=== PATIENT | female | born 1995 | race Asian ===

== ENCOUNTER 2018-02-08 16:13 | Emergency (ER) | payer OTHER ==
[~2018-02-08] VITALS: Ht 162.6 cm; Wt 57.2 kg
[2018-02-08 16:26] VITALS: Ht 162.6 cm; Wt 57.2 kg
[2018-02-08 17:37] LABS: BASOPHIL % 0.4 % (0-2); PLATELET COUNT 267 x10^3mcL (130-400); RED CELL DISTRIBUTION WIDTH 13.1 % (11.5-14.5)
[2018-02-08 19:49] LABS: UA SPECIFIC GRAVITY >=1.030 (1.005-1.035); microscopic required? YES; urine erythrocyte TRACE (NEGATIVE)
[2018-02-08 20:29] VITALS: BP 110/54
== END 2018-02-08 20:49 | disposition home or self-care (01) ==
LOC: ED 16:13
PROVIDERS: Emergency Medicine
DX: O20.8 Other hemorrhage in early pregnancy (principal); O21.9 Vomiting of pregnancy, unspecified; E86.0 Dehydration; R10.30 Lower abdominal pain, unspecified; M54.5 Low back pain; Z3A.01 Less than 8 weeks gestation of pregnancy
CPT/HCPCS: J1200; J2765; J7030